=== PATIENT | male | born 1960 | race Caucasian/White ===

== ENCOUNTER 2017-03-17 09:27 | Day surgery (SDC) | payer BC ==
[2017-03-17] MEDS ORDERED: PROPOFOL 10 MG/ML VIAL IV ONE (14:00)
[2017-03-17] MEDS ORDERED: MIDAZOLAM HCL 2MG/2ML VIAL IV ONE (14:00)
[2017-03-17] MEDS ORDERED: LIDOCAINE 2% MDV (20MG/ML) 20ML VIAL IV ONE (14:00)
--- NOTE | 2017-03-22 11:21 | Operative Note ---
DATE OF SURGERY: OPERATION: COLONOSCOPY with cold forceps polypectomy x2. PREOPERATIVE DIAGNOSIS: Personal history of colon polyps. POSTOPERATIVE DIAGNOSIS: Transverse colon polyps x2. PROCEDURE: After informed consent was obtained from the patient, he was placed in the left lateral decubitus position in the endoscopy suite, sedated and monitored by the department of anesthesia. Digital rectal exam was unremarkable. A well-lubricated IJ126DI colonoscope was inserted into the rectum and advanced to the cecum. Preparation quality was good to excellent. The ileocecal valve, appendiceal orifice, ascending colon, and cecum were unremarkable. The transverse colon revealed 2 diminutive polyps each removed with a cold forceps. The remainder of the transverse colon, descending colon, sigmoid colon, and rectum were unremarkable. Forward and J-turn views of the rectum and anorectum were unrevealing. The endoscope was straightened, the rectal ampulla deflated, and the endoscope was removed. RECOMMENDATIONS: The patient should resume his medications and diet. He should undergo repeat exam in 5 years for continued surveillance. As always, thank you for allowing me to participate in the healthcare of your patients. CC: Dr. Govind BA
== END 2017-03-17 11:33 | disposition home or self-care (01) ==
LOC: HOP 09:27
PROVIDERS: ATTEND Internal Medicine Gastroenterology
DX: Z86.010 Personal history of colon polyps (principal); D12.3 Benign neoplasm of transverse colon